=== PATIENT | female | born 2000 | race Caucasian/White ===

== ENCOUNTER 2024-03-21 18:08 | Emergency (ER) | payer MEDICAID, SELFPAY ==
[2024-03-21] VITALS (19 sets, daily range): BP systolic 112–123; BP diastolic 67–77; PULSE 54–79; TEMP 36.8; O2SAT 97–100; BMI 32.9
--- NOTE | 2024-03-21 18:28 | ED_ITS ---
HPI HPI - General Adult General Chief complaint: Chest Pain Stated complaint: chest and abd pain Time Seen by Provider: 03/21/24 18:09 Source: patient Mode of arrival: walk-in Limitations: no limitations History of Present Illness HPI narrative: Is a 23-year-old female who presents to the emergency department for a 3 hour history of sternal chest pain radiating into the epigastrium and umbilicus. She states she initially felt mildly short of breath but has no shortness of breath at this time. She does not take control, she is unsure of a possibility of . She has had no fevers, cough or congestion. No previous abdominal surgeries. No flank or back pain. No urinary symptoms. No recent illness. She states the pain is 6/10 at this time. She took Motrin 1 hour ago. Related Data Previous Rx's ?Medication ?Instructions ?Recorded ondansetron 4 mg disintegrating 4 mg PO Q6H PRN nausea and 03/21/24 tablet vomiting #12 tabs pantoprazole 40 mg tablet,delayed 40 mg PO DAILY #7 tabs 03/21/24 release (Protonix) sucralfate 1 gram tablet (Carafate) 1 g PO Q6H PRN abdominal pain #12 03/21/24 tabs Allergies Allergy/AdvReac Type Severity Reaction Status Date / Time No Known Drug Allergies Allergy Verified 03/21/24 18:15 Opioid HPI Opioid Management Most Recent Opioid Data: Last Pain Scale 6 03/21/24 18:26 Review of Systems ROS Constitutional Denies: fever or chills Ears, nose, mouth, and throat Denies: throat pain or nasal congestion Cardiovascular Reports: chest pain Respiratory Denies: shortness of breath or cough Gastrointestinal Reports: abdominal pain; Denies: nausea, vomiting or diarrhea Musculoskeletal Denies: back pain Integumentary/Breast Denies: rash Hematologic/Lymphatic Denies: easy bruising or easy bleeding Exam Narrative Exam Narrative: Gen.: Awake, alert, in no distress Head: Normocephalic, atraumatic ENT: Moist mucous membranes Respiratory: No respiratory distress, lungs clear bilaterally Cardio: Regular rate and rhythm Gastrointestinal: Abdomen is soft, nondistended and Tender to palpation in the epigastrium with no guarding or rebound Extremities: Moves extremities equally Psych: Normal mood and affect Neuro: No focal neuro deficit Skin: Warm, dry, intact Constitutional Vital Signs, click to edit/add: Last Vital Signs Temp 98.2 F 03/21/24 18:15 Pulse 62 03/21/24 20:40 Resp 14 03/21/24 20:40 BP 114/67 03/21/24 20:35 Pulse Ox 100 03/21/24 20:40 O2 Del Method Room Air 03/21/24 18:15 Course Vital Signs Vital signs: Vital Signs Temperature 98.2 F 03/21/24 18:15 Pulse Rate 71 03/21/24 18:15 Respiratory Rate 17 03/21/24 18:15 Blood Pressure 123/72 03/21/24 18:15 Pulse Oximetry 100 03/21/24 18:15 Oxygen Delivery Method Room Air 03/21/24 18:15 Temperature 98.2 F 03/21/24 18:15 Pulse Rate 62 03/21/24 20:40 Respiratory Rate 14 03/21/24 20:40 Blood Pressure 114/67 03/21/24 20:35 Pulse Oximetry 100 03/21/24 20:40 Oxygen Delivery Method Room Air 03/21/24 18:15 Medical Decision Making MDM Narrative Medical decision making narrative: Patient treated with GI cocktail in the ER, EKG, lab studies including troponin, LFTs and lipase are within normal limits. test is negative. Abdominal x-rays show clear chest, nonobstructive bowel gas pattern. Abdomen is soft and benign in the ER. Suspect gastritis/esophagitis causing symptoms. Patient placed on Zofran, Carafate and Protonix for home. Follow-up PCP and return to the ER if symptoms change or worsen SUPERVISED APC VISIT, PHYSICIAN ATTESTATION: Based on the medical record the care appears appropriate. ? Medical Records Medical records reviewed: Yes I reviewed the patient's medical records Lab Data Lab results reviewed: Yes I reviewed the patient's lab results Labs: Lab Results 03/21/24 03/21/24 Range/Units 18:38 18:40 WBC 7.7 (4.0-11.0) 10^3/uL RBC 4.67 (4.20-5.40) 10^6/uL Hgb 13.2 (12.0-16.0) g/dL Hct 39.4 (36.0-48.0) % MCV 84.4 (81.0-99.0) fL MCH 28.3 (26.7-34.0) pg MCHC 33.5 (29.9-35.2) g/dL RDW 12.5 (11.0-15.0) % Plt Count 343 (150-450) 10^3/uL MPV 8.9 L (9.5-13.5) fL Neut % (Auto) 55.0 (43.0-75.0) % Lymph % (Auto) 37.1 (20.5-60.0) % [place] % (Auto) 6.7 (1.7-12.0) % Eos % (Auto) 1.0 (0.9-7.0) % Baso % (Auto) 0.1 L (0.2-2.0) % Neut # (Auto) 4.2 (1.4-6.5) 10^3/uL Lymph # (Auto) 2.8 (1.2-3.8) 10^3/uL [place] # (Auto) 0.5 (0.3-0.8) 10^3/uL Eos # (Auto) 0.1 (0.0-0.7) 10^3/uL Baso # (Auto) 0.0 (0.0-0.1) 10^3/uL Abs Immat Gran (auto) 0.01 (0.00-0.03) 10^3/uL Imm/Tot Granulo (auto) 0.1 (0.0-0.5) % Sodium 142 (136-145) mmol/L Potassium 3.5 (3.5-5.1) mmol/L Chloride 105 (98-107) mmol/L Carbon Dioxide 25.3 (21.0-32.0) mmol/L Anion Gap 15.2 BUN 13.0 (7.0-18.0) mg/dL Creatinine 0.86 (0.55-1.02) mg/dL Est GFR ( Amer) >60 (>=60) Est GFR (Non-Af Amer) >60 (>=60) BUN/Creatinine Ratio 15.1 Glucose 95 (74-106) mg/dL Calcium 9.1 (8.5-10.1) mg/dL Total Bilirubin 0.4 (0.2-1.0) mg/dL AST 14 L (15-37) U/L ALT 19 (14-59) U/L Alkaline Phosphatase 50 (46-116) U/L Troponin I High Sens <4.0 L (4.0-51.3) pg/mL Total Protein 7.1 (6.4-8.2) g/dL Albumin 4.1 (3.4-5.0) g/dL Globulin 3.0 g/dL Albumin/Globulin Ratio 1.4 Lipase 53.0 (16.0-77.0) U/L Serum HCG, Qual Negative (NEGATIVE) Urine Color Yellow (YELLOW) Urine Clarity Clear (CLEAR) Urine pH 6.0 (5.0-9.0) Ur Specific Hundred >=1.030 A (1.005-1.025) Urine Protein Trace (NEG/TRACE) mg/dL Urine Glucose (UA) Negative (NEGATIVE) mg/dL Urine Ketones Negative (NEGATIVE) mg/dL Urine Occult Blood Negative (NEGATIVE) Urine Nitrite Negative (NEGATIVE) Urine Bilirubin Negative (NEGATIVE) Urine Urobilinogen 1.0 (0.2-1.0) EU/dL Ur Leukocyte Esterase Negative (NEGATIVE) Imaging Data Abdominal x-ray: Attestation: I have reviewed the pertinent imaging results. Radiologist's impression: ITS Impressions Chest/Abdomen X-ray 03/21/24 20:16 IMPRESSION: No acute process. Moderate volume stool burden. Electronically authenticated by: MITA DINH Date: 03/21/2024 21:36 ECG Data Attestation: I personally reviewed and interpreted this ECG as follows: (Normal sinus rhythm at a rate of 79, no acute ST elevation or ectopy. EKG reviewed by attending physician) Discharge Plan Discharge Stand Alone Forms: Portal Instructions Chief Complaint: Chest Pain Clinical Impression: Chest pain, Abdominal pain Patient Disposition: Home, Self-Care Time of Disposition Decision: 20:53 Condition: Good Mode of Transportation: Private Vehicle Prescriptions / Home Meds: New sucralfate [Carafate] 1 gram tablet 1 g PO Q6H PRN (Reason: abdominal pain) Qty: 12 0RF pantoprazole [Protonix] 40 mg tablet,delayed release (DR/EC) 40 mg PO DAILY Qty: 7 0RF ondansetron 4 mg tablet,disintegrating 4 mg PO Q6H PRN (Reason: nausea and vomiting) Qty: 12 0RF Print Language: Telugu Instructions: Chest Pain (ED) Referrals: Physician,Non-Staff, MD [Primary Care Provider] - 1 week Discharge Date/Time: 03/21/24 21:00
--- NOTE | 2024-03-21 18:30 | ECG_ITS ---
[facility] Test Date: 2024-03-21 Pat Name: DEREK PRATHER Department: Room: - Gender: Female [place]: : 2000 Requested By: [id number] Order Number: [id number] Reading MD: GERMAN SELF Measurements Intervals Inez Rate: 79 P: 43 DC: 146 QRS: 89 QRSD: 96 T: 38 QT: 386 QTc: 420 Interpretive Statements 1100 Sinus rhythm 4068 Nonspecific Twave abnormality 9130 borderline ECG No previous ECG available for comparison Electronically Signed On 03-22-2024 6:48:50 EDT by GERMAN SELF
[2024-03-21] MEDS: 0.9 % SODIUM CHLORIDE 1,000 ML 999 ML IV (18:42)
[2024-03-21 18:50] LABS: Basophils Percent Auto 0.1 % (0.2-2.0); Eosinophils Absolute Auto 0.1 10^3/uL (0.0-0.7); Hematocrit 39.4 % (36.0-48.0); Hemoglobin 13.2 g/dL (12.0-16.0); Immature Granulocytes Abs Auto 0.01 10^3/uL (0.00-0.03); Immature Granulocytes Pct Auto 0.1 % (0.0-0.5); Lymphocytes Absolute Auto 2.8 10^3/uL (1.2-3.8); Lymphocytes Percent Auto 37.1 % (20.5-60.0); Mean Corpuscular HGB Conc 33.5 g/dL (29.9-35.2); Mean Corpuscular Hemoglobin 28.3 pg (26.7-34.0); Mean Corpuscular Volume 84.4 fL (81.0-99.0); Mean Platelet Volume 8.9 fL (9.5-13.5); Monocytes Absolute Auto 0.5 10^3/uL (0.3-0.8); Monocytes Percent Auto 6.7 % (1.7-12.0); Neutrophils Absolute Auto 4.2 10^3/uL (1.4-6.5); Platelet Count 343 10^3/uL (150-450); Red Blood Count 4.67 10^6/uL (4.20-5.40); Red Cell Distribution Width 12.5 % (11.0-15.0); White Blood Count 7.7 10^3/uL (4.0-11.0)
[2024-03-21 18:58] LABS: Bilirubin Urine NEGATIVE (NEGATIVE); Blood Urine NEGATIVE (NEGATIVE); Clarity Urine CLEAR (CLEAR); Color Urine YELLOW (YELLOW); Glucose Urine UA NEGATIVE (NEGATIVE); Ketones Urine NEGATIVE (NEGATIVE); Leukocyte Esterase Urine NEGATIVE (NEGATIVE); Nitrite Urine NEGATIVE (NEGATIVE); Protein Urine TRACE mg/dL (NEG/TRACE); Specific Gravity Urine >=1.030 (1.005-1.025)
[2024-03-21 18:59] LABS: HCG Qualitative NEGATIVE (NEGATIVE); Internal Control Within Normal Limits
[2024-03-21 19:07] LABS: Urine Microscopic Indicated NO
[2024-03-21] MEDS: lidocaine HCL 15 ML, MAG HYDROX/ALUMINUM HYD/SIMETH 30 ML, HYOSCYAMINE SULFATE 0.25 MG PO (19:14)
[2024-03-21 20:15] LABS: Albumin Globulin Ratio 1.4; Albumin Level 4.1 g/dL (3.4-5.0); Alkaline Phosphatase 50 U/L (46-116); Anion Gap 15.2; Aspartate Amino Transferase 14 U/L (15-37); BUN Creatinine Ratio 15.1; Bilirubin Total 0.4 mg/dL (0.2-1.0); Calcium 9.1 mg/dL (8.5-10.1); Carbon Dioxide 25.3 mmol/L (21.0-32.0); Chloride 105 mmol/L (98-107); Estimated GFR (African America >60 (>=60); Estimated GFR (Non-African Ame >60 (>=60); Glucose 95 mg/dL (74-106); Potassium 3.5 mmol/L (3.5-5.1); Sodium 142 mmol/L (136-145); Total Protein 7.1 g/dL (6.4-8.2); Troponin I High Sensitivity <4.0 pg/mL (4.0-51.3)
--- NOTE | 2024-03-21 20:16 | XR_ITS ---
The [address] [address] Patient Name: DEREK PRATHER MRN: [id number] date: 2000 Sex: F Assigned Patient Location: ED.MAIN Current Patient Location: Accession/Order Number: [id number] Exam Date: 03/21/2024 20:52 Report Date: 03/21/2024 21:36 At the request of: ENOCH HATHAWAY Procedure: XR acute abdomen series EXAM: XR acute abdomen series HISTORY: chest/abd pain COMPARISON: None. TECHNIQUE: Chest X-ray AP, 1 view Abdominal x-ray, 3 views. FINDINGS: Support devices: None. Lungs/pleura: No consolidation, effusion, or pneumothorax. Heart and mediastinum: Normal contours. Bones: No acute abnormality identified. Bowel: Moderate volume colonic stool is demonstrated. No bowel dilatation. XR/XR acute abdomen series IMPRESSION: No acute process. Moderate volume stool burden. Electronically authenticated by: MITA DINH Date: 03/21/2024 21:36
[2024-03-21 20:26] LABS: Alanine Aminotransferase 19 U/L (14-59)
== END 2024-03-21 21:00 | disposition home or self-care (01) ==
PROVIDERS: Physician Assistant; Emergency Provider Internal Medicine
DX: R07.9 Chest pain, unspecified (principal); R10.9 Unspecified abdominal pain
CPT/HCPCS: 36415; 74022; 80053; 81003; 83690; 84484; 84703; 85025; 93005; 99285

== ENCOUNTER 2024-03-25 10:00 | Emergency (ER) | payer MEDICAID, SELFPAY ==
[2024-03-25 10:06] VITALS: BP 132/81; PULSE 101; TEMP 36.6; O2SAT 100; BMI 32.9
--- NOTE | 2024-03-25 10:14 | CT_ITS ---
[address] [address] Patient Name: DEREK PRATHER MRN: [id number] date: 2000 Sex: F Assigned Patient Location: ED.MAIN Current Patient Location: Accession/Order Number: [id number] Exam Date: 03/25/2024 10:43 Report Date: 03/25/2024 11:11 At the request of: ALLISON VALDOVINOS Procedure: CT abdomen pelvis w con EXAMINATION: CT abdomen pelvis w con HISTORY: abdominal pain COMPARISON: No relevant comparison available. TECHNIQUE: CT images were created with IV contrast. Axial, Coronal, and Sagittal images. Dose reduction techniques were achieved by using automated exposure control and/or adjustment of mA and/or kV according to patient size and/or use of iterative reconstruction technique. FINDINGS: LUNG BASES: No visible pulmonary or pleural disease. LIVER: No enlargement, atrophy, abnormal density, or significant focal lesion. BILIARY: No visible dilatation or calcification. PANCREAS: No lesion, fluid collection, ductal dilatation, or atrophy. SPLEEN: No enlargement or focal lesion. ADRENALS: No mass or enlargement. KIDNEYS: No mass, obstruction, or calcification. BOWEL/MESENTERY: No visible mass, obstruction, or bowel wall thickening. Normal appendix AORTA/VASCULAR: No aneurysm or dissection. RETROPERITONEUM: No mass or adenopathy. LYMPH NODES: No adenopathy. URINARY BLADDER: No visible focal wall thickening, lesion, or calculus. PELVIC ORGANS: 2.7 cm right adnexal cyst cyst. Dilated endometrial cavity and endocervical canal, correlate with the menstrual cycle ABDOMINAL WALL: No mass or hernia. BONES: No bony lesion or fracture. OTHER: Negative. CT/CT abdomen pelvis w con IMPRESSION: 2.7 cm right adnexal cyst Normal appendix Electronically authenticated by: HOMA SEPULVEDA Date: 03/25/2024 11:11
[2024-03-25] MEDS: 0.9 % SODIUM CHLORIDE 1,000 ML 999 ML IV (10:33)
[2024-03-25 10:35] LABS: Basophils Percent Auto 0.1 % (0.2-2.0); Eosinophils Absolute Auto 0.1 10^3/uL (0.0-0.7); Eosinophils Percent Auto 0.9 % (0.9-7.0); Hematocrit 43.2 % (36.0-48.0); Hemoglobin 14.3 g/dL (12.0-16.0); Immature Granulocytes Abs Auto 0.02 10^3/uL (0.00-0.03); Immature Granulocytes Pct Auto 0.2 % (0.0-0.5); Lymphocytes Absolute Auto 2.3 10^3/uL (1.2-3.8); Lymphocytes Percent Auto 23.9 % (20.5-60.0); Mean Corpuscular HGB Conc 33.1 g/dL (29.9-35.2); Mean Corpuscular Hemoglobin 28.3 pg (26.7-34.0); Mean Corpuscular Volume 85.4 fL (81.0-99.0); Monocytes Absolute Auto 0.6 10^3/uL (0.3-0.8); Monocytes Percent Auto 6.6 % (1.7-12.0); Neutrophils Absolute Auto 6.5 10^3/uL (1.4-6.5); Neutrophils Percent Auto 68.3 % (43.0-75.0); Platelet Count 337 10^3/uL (150-450); Red Blood Count 5.06 10^6/uL (4.20-5.40); Red Cell Distribution Width 12.5 % (11.0-15.0); White Blood Count 9.5 10^3/uL (4.0-11.0)
--- NOTE | 2024-03-25 10:36 | ED.ABDPAIN1 ---
HPI - Abdominal Pain General Chief Complaint: Abdominal Pain Stated Complaint: ABDOMINAL PAIN, SWEATING Time Seen by Provider: 03/25/24 10:05 Source: patient Mode of arrival: walk-in Limitations: no limitations History of Present Illness HPI narrative: 23-year-old female to the emergency department with chief complaint of abdominal pain. Patient reports she has had epigastric pain which has been worsening. She was seen in this emergency department on the and evaluated for this. Had normal labs and x-ray of her chest abdomen. She has been taking the Protonix and Zofran at home however symptoms not improved. It is sharp and intermittent in nature. It is across her upper abdomen. Patient and her mother are concerned it is her gallbladder. She denies .She initially had nausea and vomiting, now just nausea. 1 episode of diarrhea on Monday. No major medical problems. No surgeries in the abdomen. Related Data Previous Rx's ?Medication ?Instructions ?Recorded ondansetron 4 mg disintegrating 4 mg PO Q6H PRN nausea and 03/21/24 tablet vomiting #12 tabs pantoprazole 40 mg tablet,delayed 40 mg PO DAILY #7 tabs 03/21/24 release (Protonix) sucralfate 1 gram tablet (Carafate) 1 g PO Q6H PRN abdominal pain #12 03/21/24 tabs Lactobacillus rhamnosus GG 10 1 cap PO DAILY 30 days #30 caps 03/25/24 billion cell-inulin 200 mg capsule ([employer]) dicyclomine 10 mg capsule 10 mg PO QID PRN abdominal pain 03/25/24 #12 caps Allergies Allergy/AdvReac Type Severity Reaction Status Date / Time No Known Drug Allergies Allergy Verified 03/21/24 18:15 Review of Systems ROS Status of ROS 10 or more systems reviewed and unremarkable except as noted in history and below Exam Narrative Exam Narrative: VITALS: I have reviewed the triage vital signs. GENERAL: Well developed, well appearing adult in no acute distress. NEURO: Alert and oriented. Moves all extremities. Face is symmetric and expressive. EYES: PERRL. No scleral icterus or conjunctival injection. No discharge. HENT: Normocephalic, atraumatic. Hearing is grossly intact. Nares grossly patent and without discharge. Mucous membranes moist. NECK: No JVD. Patient moves neck without restriction. CARDIO: Rhythm regular. Normal rate. No murmur, rub, or gallop. Pulses equal bilaterally in the upper and lower extremity. No lower extremity edema. PULM: Lungs clear to auscultation in all es[place]. No wheezes, rales, or rhonchi. No conversational dyspnea. No splinting, stridor, or accessory muscle use. GI/: Abdomen is soft. Mild epigastric and right upper quadrant tenderness. No rebound or guarding. EXTREMITIES: Symmetric muscle bulk. No joint swelling. No clubbing, cyanosis, or deformity. SKIN: Warm and dry. Normal turgor. No rash or lesions appreciated. PSYCH: Mood, affect, and interaction is appropriate to the setting. Constitutional Vital Signs, click to edit/add: Last Vital Signs Temp 97.9 F 03/25/24 10:06 Pulse 68 03/25/24 11:30 Resp 16 03/25/24 11:30 BP 103/58 03/25/24 11:30 Pulse Ox 100 03/25/24 11:30 O2 Del Method Room Air 03/25/24 11:30 Course Vital Signs Vital signs: Vital Signs Temperature 97.9 F 03/25/24 10:06 Pulse Rate 101 H 03/25/24 10:06 Respiratory Rate 18 03/25/24 10:06 Blood Pressure 132/81 03/25/24 10:06 Pulse Oximetry 100 03/25/24 10:06 Oxygen Delivery Method Room Air 03/25/24 10:06 Temperature 97.9 F 03/25/24 10:06 Pulse Rate 68 03/25/24 11:30 Respiratory Rate 16 03/25/24 11:30 Blood Pressure 103/58 03/25/24 11:30 Pulse Oximetry 100 03/25/24 11:30 Oxygen Delivery Method Room Air 03/25/24 11:30 MDM - Abdominal Pain MDM Narrative Medical decision making narrative: 23-year-old female to the emergency department chief complaint of epigastric/right upper quadrant pain has been worsening in nature since visit on the . Vital stable, the patient is afebrile. Mild tenderness on exam. She declines any pain medication. Labs and CT scan ordered. Patient agrees with this plan. CT scan and labs are unremarkable. She does have a small ovarian cyst. This is not the cause of her symptoms however. Lab work is unremarkable. She remains well-appearing with normal vitals. She does not vomit. She is able tolerate oral intake. She is appropriate for discharge. Will add Bentyl and a probiotic to her regimen. 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 Return precautions were discussed. All questions were answered. The patient was discharged home. Medical Records Attestation: I reviewed the patient's medical records. Lab Data Attestation: I reviewed the patient's lab results. Labs: Lab Results 03/25/24 Range/Units 10:26 WBC 9.5 (4.0-11.0) 10^3/uL RBC 5.06 (4.20-5.40) 10^6/uL Hgb 14.3 (12.0-16.0) g/dL Hct 43.2 (36.0-48.0) % MCV 85.4 (81.0-99.0) fL MCH 28.3 (26.7-34.0) pg MCHC 33.1 (29.9-35.2) g/dL RDW 12.5 (11.0-15.0) % Plt Count 337 (150-450) 10^3/uL MPV 9.0 L (9.5-13.5) fL Neut % (Auto) 68.3 (43.0-75.0) % Lymph % (Auto) 23.9 (20.5-60.0) % [place] % (Auto) 6.6 (1.7-12.0) % Eos % (Auto) 0.9 (0.9-7.0) % Baso % (Auto) 0.1 L (0.2-2.0) % Neut # (Auto) 6.5 (1.4-6.5) 10^3/uL Lymph # (Auto) 2.3 (1.2-3.8) 10^3/uL [place] # (Auto) 0.6 (0.3-0.8) 10^3/uL Eos # (Auto) 0.1 (0.0-0.7) 10^3/uL Baso # (Auto) 0.0 (0.0-0.1) 10^3/uL Abs Immat Gran (auto) 0.02 (0.00-0.03) 10^3/uL Imm/Tot Granulo (auto) 0.2 (0.0-0.5) % Sodium 141 (136-145) mmol/L Potassium 4.3 (3.5-5.1) mmol/L Chloride 105 (98-107) mmol/L Carbon Dioxide 26.0 (21.0-32.0) mmol/L Anion Gap 14.3 BUN 15.0 (7.0-18.0) mg/dL Creatinine 0.74 (0.55-1.02) mg/dL Est GFR ( Amer) >60 (>=60) Est GFR (Non-Af Amer) >60 (>=60) BUN/Creatinine Ratio 20.3 Glucose 94 (74-106) mg/dL Calcium 9.0 (8.5-10.1) mg/dL Total Bilirubin 0.2 (0.2-1.0) mg/dL AST 15 (15-37) U/L ALT 20 (14-59) U/L Alkaline Phosphatase 49 (46-116) U/L Total Protein 7.4 (6.4-8.2) g/dL Albumin 3.9 (3.4-5.0) g/dL Globulin 3.5 g/dL Albumin/Globulin Ratio 1.1 Lipase 65.0 (16.0-77.0) U/L Imaging Data CT scan - abdomen: Attestation: I have reviewed the pertinent imaging results. Radiologist's impression: ITS Impressions Abdomen/Pelvis CT 03/25/24 10:14 IMPRESSION: 2.7 cm right adnexal cyst Normal appendix Electronically authenticated by: HOMA SEPULVEDA Date: 03/25/2024 11:11 Discharge Plan Discharge Stand Alone Forms: Portal Instructions Chief Complaint: Abdominal Pain Clinical Impression: Abdominal pain Patient Disposition: Home, Self-Care Time of Disposition Decision: 11:34 Condition: Good Mode of Transportation: Private Vehicle Prescriptions / Home Meds: [facility] 10 billion cell -200 mg capsule 1 cap PO DAILY 30 Days Qty: 30 0RF dicyclomine 10 mg capsule 10 mg PO QID PRN (Reason: abdominal pain) Qty: 12 0RF No Action sucralfate [Carafate] 1 gram tablet 1 g PO Q6H PRN (Reason: abdominal pain) Qty: 12 0RF pantoprazole [Protonix] 40 mg tablet,delayed release (DR/EC) 40 mg PO DAILY Qty: 7 0RF ondansetron 4 mg tablet,disintegrating 4 mg PO Q6H PRN (Reason: nausea and vomiting) Qty: 12 0RF Print Language: Prydeinig Instructions: Ovarian Cyst (ED), Abdominal Pain (ED) Additional Instructions: Call the office of your primary care doctor to arrange for follow-up within the above-stated timeframe. Your ED visit was focused on your acute issue and does not replace primary care. You should review your labs, imaging, and diagnoses from this ED visit with your primary care physician. There may be non-emergent/ incidental findings that need further evaluation. You should review your vital signs including blood pressure with your PCP. If you were prescribed medications you should discuss possible side-effects and drug interactions with your pharmacist. Call 911 or go to the nearest Emergency Department if you develop any new or worsening symptoms. Seek immediate medical attention if you develop: worsening abdominal pain, new or worsening nausea, new or worsening vomiting, new or worsening diarrhea, chest pain, shortness of breath, pain with urination, problems urinating, fever, chills, weakness, or any new or worsening symptoms. Referrals: Physician,Non-Staff, MD [Primary Care Provider] - 1 week
[2024-03-25 10:56] LABS: Alanine Aminotransferase 20 U/L (14-59); Albumin Globulin Ratio 1.1; Albumin Level 3.9 g/dL (3.4-5.0); Alkaline Phosphatase 49 U/L (46-116); Anion Gap 14.3; Aspartate Amino Transferase 15 U/L (15-37); BUN Creatinine Ratio 20.3; Bilirubin Total 0.2 mg/dL (0.2-1.0); Chloride 105 mmol/L (98-107); Estimated GFR (African America >60 (>=60); Estimated GFR (Non-African Ame >60 (>=60); Globulin 3.5 g/dL; Glucose 94 mg/dL (74-106); Potassium 4.3 mmol/L (3.5-5.1); Sodium 141 mmol/L (136-145); Total Protein 7.4 g/dL (6.4-8.2)
[2024-03-25 11:30] VITALS: BP 103/58; PULSE 68; O2SAT 100
== END 2024-03-25 12:16 | disposition home or self-care (01) ==
PROVIDERS: Emergency Provider Student in an Organized Health Care Education/Training Program
DX: R10.9 Unspecified abdominal pain (principal)
CPT/HCPCS: 36415; 74177; 80053; 83690; 85025; 99284; Q9967